=== PATIENT | female | born 1995 | race African-American/Black ===

== ENCOUNTER 2020-10-12 13:49 | Emergency (ER) | payer MEDICAID ==
[~2020-10-12] VITALS: Ht 167.6 cm; Wt 70.0 kg
[2020-10-12] MEDS ORDERED: KETOROLAC 30MG/ML VIAL IV STA (14:20)
[2020-10-12] MEDS ORDERED: ONDANSETRON HCL 4MG/2ML INJ IV STA (14:20)
[2020-10-12] MEDS ORDERED: SODIUM CHLORIDE 0.9% 1,000 ML IV ONE (14:30)
[2020-10-12 15:00] LABS: BASOPHILS % 0.4 % (0.0-2.0); EOSINOPHILS % 1.1 % (0.0-5.0); HEMATOCRIT. 39.2 % (36.0-48.0); HEMOGLOBIN. 12.8 g/dL (12.0-16.0); LYMPHOCYTES % 24.2 % (20.0-50.0); MEAN CORPUSCULAR HEMOGLOBIN 28.6 pg (28.0-32.0); MEAN CORPUSCULAR VOLUME 87.3 fL (81.0-99.0); MEAN PLATELET VOLUME 10.3 fl (7.4-10.4); MONOCYTES % 13.4 % (2.0-8.0); NEUTROPHILS % 60.9 % (40.0-76.0); PLATELET 166 x1000/uL (130-400); RED BLOOD CELL COUNT 4.49 mill/uL (4.2-5.4)
[2020-10-12 15:01] LABS: INR 1.1; PROTHROMBIN TIME 11.7 sec (9.6-11.0)
[2020-10-12 15:06] LABS: CHLORIDE 109 mEq/L (98-107)
[2020-10-12 15:18] LABS: HCG SCREEN NEGATIVE
[2020-10-12] MEDS ORDERED: OMEP40CA12 MT (16:30)
[2020-10-12 16:40] VITALS: BP 114/76
== END 2020-10-12 16:46 | disposition home or self-care (01) ==
LOC: ER 13:49
DX: R10.9 Unspecified abdominal pain (principal); Z88.3 Allergy status to other anti-infective agents
CPT/HCPCS: 36415; 74176; 80053; 83690; 84703; 85025; 85610; 93005; 96361; 96374; 96375; 99285; J1885; J2405; J7030